=== PATIENT | female | born 1965 | race Caucasian/White ===

== ENCOUNTER 2020-11-29 07:37 | Day surgery (SDC) | payer OTHER ==
[~2020-11-29] VITALS: Ht 165.1 cm; Wt 112.5 kg
[~2020-11-29 07:37] MED LIST: ALBU90OI INH; BENZEDREX; DULERA 100 MCG/13 GM INH; ERGO400 PO; GLUCOPHAGE1000 MG PO; GLUCOTROL5 MG PO; LISI20 PO; METO50 PO; NYAMYC15 G1 TOP; OMEGA-3 FISH O1 EAC6 PO; PANT40 PO; PROCTOSOL HC PR; PSYSENPA PO
== END 2020-11-29 09:58 | disposition home or self-care (01) ==
LOC: ORSCSDS 07:37
PROVIDERS: Student in an Organized Health Care Education/Training Program
PROC: 0DB48ZX Excision of Esophagogastric Junction, Via Natural or Artificial Opening Endoscopic, Diagnostic (ICD-10-PCS; principal; 2020-11-29 09:15)
DX: K22.70 Barrett's esophagus without dysplasia (principal); K21.9 Gastro-esophageal reflux disease without esophagitis; I10 Essential (primary) hypertension; E11.9 Type 2 diabetes mellitus without complications; J44.9 Chronic obstructive pulmonary disease, unspecified; Z87.891 Personal history of nicotine dependence; Z79.899 Other long term (current) drug therapy; E66.01 Morbid (severe) obesity due to excess calories; Z68.41 Body mass index [BMI] 40.0-44.9, adult
CPT/HCPCS: 82947; 88305; J0330; J0461; J2405; J2704; J7120